=== PATIENT | male | born 1975 | race African-American/Black ===

== ENCOUNTER 2024-12-07 10:06 | Emergency (ER) | payer OTHER ==
[~2024-12-07] VITALS: Ht 177.8 cm; Wt 82.0 kg
[2024-12-07 10:07] VITALS: BP 118/84; PULSE 72; RESP 14; TEMP 36.6; O2SAT 98
[2024-12-07 11:08] LABS: EOSINOPHILS % 2.1 % (0.0-5.0); HEMATOCRIT. 40.1 % (42.0-52.0); HEMOGLOBIN. 13.4 g/dL (14.0-18.0); LYMPHOCYTES % 30.5 % (20.0-50.0); MEAN CORPUSCULAR HEMOGLOBIN 27.8 pg (28.0-32.0); MEAN CORPUSCULAR HGB CONC 33.6 g/dL (31.0-37.0); MEAN CORPUSCULAR VOLUME 82.9 fL (80.0-94.0); MEAN PLATELET VOLUME 7.9 fl (7.4-10.4); MONOCYTES % 9.5 % (2.0-8.0); NEUTROPHILS % 56.9 % (40.0-76.0); PLATELET 241 x1000/uL (130-400); RED BLOOD CELL COUNT 4.84 mill/uL (4.7-6.1); WHITE BLOOD COUNT 5.2 x1000/uL (4.5-11.0)
[2024-12-07 11:19] LABS: CHLORIDE 107 mEq/L (98-107); POTASSIUM 3.9 mEq/L (3.5-5.1); SODIUM 141 mEq/L (136-145)
[2024-12-07 11:20] LABS: CARBON DIOXIDE 26 mEq/L (21-32)
[2024-12-07 11:25] LABS: CREATININE 1.1 mg/dL (0.6-1.3); GLUCOSE 100 mg/dL (70-105); UREA NITROGEN BLOOD 18 mg/dL (9-23)
[2024-12-07 11:27] LABS: ALANINE AMINOTRANSFERASE 19 IU/L (10-49); ALBUMIN 4.5 g/dL (3.2-4.8); ASPARTATE AMINOTRANSFERASE 17 IU/L (<34); BILIRUBIN DIRECT 0.1 mg/dL (<=3.0); BILIRUBIN TOTAL 0.3 mg/dL (0.1-1.0)
[2024-12-07 11:28] LABS: PROTEIN TOTAL 7.1 g/dL (6.0-8.3)
[2024-12-07 14:01] LABS: CLARITY URINE CLEAR (CLEAR); COLOR URINE YELLOW (YELLOW); GLUCOSE URINE NEGATIVE (NEGATIVE); KETONES URINE NEGATIVE (NEGATIVE); LEUKOCYTE ESTERASE URINE 2+ (NEGATIVE); NITRITE URINE POSITIVE (NEGATIVE); OCCULT BLOOD URINE NEGATIVE (NEGATIVE); PROTEIN URINE NEGATIVE (NEGATIVE); SPECIFIC GRAVITY URINE 1.024 (1.005-1.030); UROBILINOGEN URINE 0.2 E.U./dL (0.2-1.0)
[2024-12-07 14:14] LABS: BACTERIA URINE 3+; RBC URINE 0-2 /hpf (0-2); SQUAMOUS EPITHELIAL CELL URINE RARE /lpf (RARE/1+); WBC URINE 50-100 /hpf (0-2); YEAST URINE NONE SEEN
[2024-12-07 15:11] LABS: *AMPHETAMINES SCREEN URINE PRESUMPTIVE POSITIVE (NEGATIVE); *BARBITURATES SCREEN URINE NEGATIVE (NEGATIVE); *BENZODIAZEPINES SCREEN URINE NEGATIVE (NEGATIVE); *COCAINE SCREEN URINE NEGATIVE (NEGATIVE); METHADONE URINE SCREEN NEGATIVE (NEGATIVE)
[2024-12-07 15:12] LABS: CANNABINOID URINE SCREEN PRESUMPTIVE POSITIVE (NEGATIVE); ECSTASY MDMA SCREEN URINE CONF.TEST INDICATED (NEGATIVE); OPIATES URINE SCREEN NEGATIVE (NEGATIVE); PHENCYCLIDINE URINE SCREEN PRESUMTIVE POSITIVE (NEGATIVE)
== END 2024-12-07 13:52 | disposition home or self-care (01) ==
LOC: ER 10:06
DX: F12.90 Cannabis use, unspecified, uncomplicated (principal); F15.10 Other stimulant abuse, uncomplicated; F17.210 Nicotine dependence, cigarettes, uncomplicated; R10.9 Unspecified abdominal pain; Z79.899 Other long term (current) drug therapy
CPT/HCPCS: 36415; 80048; 80076; 80305; 81003; 85025; 87077; 87186; 99283; 99406